=== PATIENT | female | born 1985 | race Caucasian/White ===

== ENCOUNTER 2020-03-07 12:44 | Emergency (ER) | payer OTHER, SELFPAY ==
[2020-03-07 13:02] VITALS: BP 132/60; PULSE 117; RESP 16; TEMP 37.1; O2SAT 100
--- NOTE | 2020-03-07 13:33 | ED.GENADULT ---
HPI - General Adult General Chief complaint: Anxiety Stated complaint: needs meds Time Seen by Provider: 03/07/20 13:30 Source: patient and RN notes reviewed Mode of arrival: ambulatory Limitations: no limitations History of Present Illness HPI narrative: 34-year-old female presents with concern for medication refill. Reports she has recently moved to the area and has not established care with a primary care provider. Reports she takes antidepressants and for anxiety which she has been out of for 4 days. Reports she feels like she is withdrawing from his medicines. She denies suicidal ideations. MD complaint: Medication refill Related Data Home Medications Medication Instructions Recorded Confirmed citalopram 40 mg PO DAILY 03/07/20 03/07/20 mirtazapine 45 mg PO HS 03/07/20 03/07/20 Allergies Allergy/AdvReac Type Severity Reaction Status Date / Time No Known Allergies Allergy Mild Unverified 01/30/15 19:33 Review of Systems Review of Systems: Narrative: CONSTITUTIONAL: Denies malaise, chills, sweats, or fever. ENT: Denies rhinorrhea CARDIOVASCULAR: Denies chest pain, palpitations RESPIRATORY: Denies dyspnea. GASTROINTESTINAL: Denies abdominal pain, nausea, vomiting, diarrhea SKIN: Denies rash or itching. NEUROLOGIC: Denies numbness, weakness, or headache. PSYCHIATRIC: Reports anxiety and depression. All systems reviewed & are unremarkable except as noted in HPI and below PMFSH Comments At time of signature, agree with nursing past medical, surgical, social and family history. There is no relevant family history pertinent to the presenting complaint Exam Narrative: Exam Narrative: GENERAL: Well-appearing, well-nourished, and in no acute distress. HEAD: Normocephalic, atraumatic. EYES: PERRLA, conjunctivae clear, and EOMI. No nystagmus. ENT: Nares clear, turbinates pink, no rhinorrhea or epistaxis. Mucous membranes moist. TM pearly saenz with sharp light reflex bilaterally; no tragal tenderness. Oropharynx without erythema or lesions. Tonsils not enlarged and without exudate. NECK: Supple. No lymphadenopathy. No jugular venous distension, thyromegaly, or carotid bruits. Carotids were easily palpable bilaterally. CHEST: No respiratory distress. Clear to auscultation. No bony deformities, no asymmetry. Speaks in full sentences. HEART: Regular rate and rhythm. No murmur heard. Normal peripheral pulses. ABDOMEN: Soft, nontender, nondistended, normal active bowel sounds, no palpable masses. EXTREMITIES: Normal range of motion. No edema. Normal strength and sensation. SKIN: Warm, dry, no rash. NEURO: Alert and oriented x3. No focal deficits. Cranial nerves II through XII grossly intact PSYCH: Normal mood and affect Course Course Emergency Course: Discussed importance of finding primary care provider, provided patient information a primary care provider to contact for appointment to provide future refills. Patient is aware of diagnosis, understands and agrees to treatment plan. Anticipatory guidance given. Patient agrees to follow-up as directed and is aware of reasons to seek care at the emergency department. Portions of this record may have been created with voice recognition software Vital Signs Vital signs: Vital Signs Temperature 98.7 F 03/07/20 13:02 Pulse Rate 117 H 03/07/20 13:02 Respiratory Rate 16 03/07/20 13:02 Blood Pressure 132/60 03/07/20 13:02 Pulse Oximetry 100 03/07/20 13:02 Temperature 98.7 F 03/07/20 13:02 Pulse Rate 117 H 03/07/20 13:02 Respiratory Rate 16 03/07/20 13:02 Blood Pressure 132/60 03/07/20 13:02 Pulse Oximetry 100 03/07/20 13:02 Reviewed. Patient has been instructed to follow up with her primary care provider within the next week regarding her elevated blood pressure today. Medical Decision Making MDM Narrative Medical decision making narrative: Exam findings show no acute concerns or changes; patient is non-toxic appearing and is in no distress. [place]
== END 2020-03-07 13:45 | disposition home or self-care (01) ==
PROVIDERS: Emergency Provider Nurse Practitioner
DX: F41.9 Anxiety disorder, unspecified (principal)
CPT/HCPCS: 99201; G0463

== ENCOUNTER 2021-05-04 11:36 | Emergency (ER) | payer OTHER, SELFPAY ==
[2021-05-04 11:44] VITALS: BP 133/87; PULSE 92; RESP 18; TEMP 36.5; O2SAT 100
--- NOTE | 2021-05-04 12:10 | ED.DENTAL ---
HPI - Dental/Oral General Chief complaint: Dental/Oral Stated complaint: TOOTHACHE Time Seen by Provider: 05/04/21 12:02 Source: patient and RN notes reviewed Mode of arrival: ambulatory Limitations: no limitations History of Present Illness HPI Narrative: Patient presents today with a broken tooth x5 months in the left lower posterior, and tooth pain in the affected tooth x2 days. States she feels like her nervemaybeexposed there may be a shard in this area that feels like it is cutting her tongue when she runs her tongue over the tooth. Denies fever, facial swelling, shortness of breath. Patient does not currently have a dentist but is seeking one. She currently rates her pain 4/10 and has been using Aleve and Orajel without relief. No recent antibiotic use. MD Complaint: tooth pain Related Data Allergies Allergy/AdvReac Type Severity Reaction Status Date / Time No Known Allergies Allergy Mild Unverified 01/30/15 19:33 Review of Systems Review of Systems: Narrative: CONSTITUTIONAL: Denies body aches, fever, chills, or sweats. EYES: Denies visual changes, redness, or discharge. ENT: Denies rhinorrhea, congestion, sore throat, or otalgia.+ Tooth pain CARDIOVASCULAR: Denies chest pain, palpitations, or edema. RESPIRATORY: Denies cough or dyspnea. GASTROINTESTINAL: Denies abdominal pain, nausea, vomiting, or diarrhea. GENITOURINARY: Denies dysuria or hematuria. SKIN: Denies rash, itching, or wounds. MUSCULOSKELETAL: Denies back pain, joint pain, or myalgia. NEUROLOGIC: Denies headache, numbness, tingling, or weakness. PSYCH: Denies depression or anxiety. PMFSH Comments At time of signature, I have reviewed and agree with nursing past medical, surgical, social and family history unless otherwise noted. Please see nursing chart for further information. There is no relevant family history pertinent to the presenting complaint Exam Narrative: Exam Narrative: GENERAL: Well-appearing, well-nourished, and in no acute distress. HEAD: Normocephalic, atraumatic. EYES: EOMI. No redness or drainage. Conjunctivae normal. ENT: Mucous membranes pink and moist. Throat normal. Uvula midline.+ Tooth #18 is broken off at the gumline and is tender to palpation. NECK: Normal AROM. Supple. No lymphadenopathy. CHEST: No respiratory distress. Clear to auscultation. HEART: Regular rate and rhythm. No murmur appreciated. Normal peripheral pulses. EXTREMITIES: Normal range of motion. No edema. SKIN: Warm, dry, no rash. Capillary refill normal. Normal skin turgor. NEURO: No focal deficits. Alert and oriented x3. Gait steady. PSYCH: Normal affect. No signs of depression or anxiety. Course Vital Signs Vital signs: Vital Signs Temperature 97.7 F 05/04/21 11:44 Pulse Rate 92 05/04/21 11:44 Respiratory Rate 18 05/04/21 11:44 Blood Pressure 133/87 05/04/21 11:44 Pulse Oximetry 100 05/04/21 11:44 Temperature 97.7 F 05/04/21 11:44 Pulse Rate 92 05/04/21 11:44 Respiratory Rate 18 05/04/21 11:44 Blood Pressure 133/87 05/04/21 11:44 Pulse Oximetry 100 05/04/21 11:44 Reviewed. Pt has been instructed to follow up with her PCP regarding her elevated blood pressure today. MDM - Dental/Oral Differential Diagnosis Differential diagnosis: Likely gingival abscess, dental caries, toothache, dental abscess and fracture of tooth Critical Care Time Critical Care Time Critical Care Time: No Discharge Plan Discharge Clinical Impression: Fracture of tooth Qualifiers: Encounter type: initial encounter Fracture type: closed Qualified Code(s): S02.5XXA - Fracture of tooth (traumatic), initial encounter for closed fracture Patient Disposition: Home, Self-Care Condition: Stable Instructions: Antibiotic Form, Dental Abscess (ED) Additional Instructions: Please take the amoxicillin as prescribed until gone. Continue Aleve for pain. Follow-up with a dentist as soon as possible for further evaluation and treat
== END 2021-05-04 12:22 | disposition home or self-care (01) ==
PROVIDERS: Emergency Provider Nurse Practitioner
DX: S02.5XXA Fracture of tooth (traumatic), initial encounter for closed fracture (principal); X58.XXXA Exposure to other specified factors, initial encounter
CPT/HCPCS: 99213; G0463

== ENCOUNTER 2021-05-17 19:18 | Emergency (ER) | payer OTHER, SELFPAY ==
--- NOTE | 2021-05-17 20:03 | PC.NURSE ---
Pt reports she will return in the morning. Left emergency room, ambulatory. Pt educated to ED if symptoms worsen or return
== END 2021-05-18 05:03 | disposition left against medical advice (07) ==
DX: Z53.21 Procedure and treatment not carried out due to patient leaving prior to being seen by health care provider (principal)
CPT/HCPCS: 99199

== ENCOUNTER 2021-05-18 10:15 | Emergency (ER) | payer OTHER, SELFPAY ==
--- NOTE | ~2021-05-18 | XR_ITS ---
EXAMINATION: XR chest 2V 05/18/2021 11:15 INDICATION: Left-sided chest pain. Chest tightness. PROCEDURE: 2 view chest COMPARISON: No prior studies for comparison. FINDINGS: The lungs are clear. The cardiomediastinal silhouette is within normal limits. There are no pleural effusions. There is no pneumothorax suspected. IMPRESSION: 1: NO ACUTE CARDIOPULMONARY DISEASE. Reviewed, dictated and finalized at location A.
[2021-05-18 10:54] VITALS: BP 131/77; PULSE 87; RESP 16; TEMP 36.6; O2SAT 99
--- NOTE | 2021-05-18 10:55 | ECG_ITS ---
Measurements Intervals [place] Rate: 68 P: 63 NM: 111 QRS: 73 QRSD: 65 T: 44 QT: 377 QTc: 402 Interpretive Statements SINUS RHYTHM WITH SHORT NM INTERVAL BORDERLINE ECG Electronically Signed On 05-18-2021 11:39:57 CDT by Andrew Pal D.O.
[2021-05-18 11:22] LABS: Basophils Absolute Auto 0.1 K/mm3 (0.0-0.1); Basophils Percent Auto 0.6 % (0.2-1.2); Eosinophils Absolute Auto 0.3 K/mm3 (0-0.3); Eosinophils Percent Auto 3.8 % (0-4.4); Hematocrit 44.4 % (37.0-47.0); Hemoglobin 14.6 g/dL (12.0-15.0); Immature Granulocyte Absolute 0.02 K/mm3 (0.00-0.031); Immature Granulocyte Percent A 0.2 % (0-0.5); Lymphocytes Absolute Auto 3.18 K/mm3 (0.9-3.2); Lymphocytes Percent Auto 36.9 % (18.3-44.2); Mean Corpuscular HGB Conc 32.9 g/dl (32-36); Mean Corpuscular Hemoglobin 32.7 pg (26-34); Mean Corpuscular Volume 99.6 fl (80-100); Mean Platelet Volume 10.2 fl (7.4-10.4); Monocytes Absolute Auto 0.6 K/mm3 (0.1-0.6); Monocytes Percent Auto 6.5 % (2.6-8.5); Neutrophils Absolute Auto 4.5 K/mm3 (1.3-6.7); Platelet Count Result 345 k/mm3 (150-375); Red Blood Count 4.46 M/mm3 (4.2-5.4); Red Cell Distribution Width 13.6 % (11.5-14.5); White Blood Count 8.6 K/mm3 (4.5-10.0)
[2021-05-18 11:31] VITALS: BP 120/85; PULSE 67; RESP 16; O2SAT 100
[2021-05-18 11:31] LABS: Add Urine Microscopic? NO; Alanine Aminotransferase 22 U/L (4-35); Albumin Level 4.1 g/dL (3.5-5.1); Alkaline Phosphatase 52 U/L (38-126); Anion Gap 7 mmol/L (8-16); Appearance Urine Clear (Clear); Aspartate Amino Transferase 23 U/L (14-36); Bilirubin Urine Negative (Negative); Bilirubin,Total 0.3 mg/dL (0.2-1.3); Blood Urea Nitrogen 10 mg/dL (7-17); Blood Urine Negative (Negative); Calcium 9.3 mg/dL (8.4-10.2); Carbon Dioxide 24 mmol/L (22-30); Chloride 107 mmol/L (98-107); Color Urine Yellow (Yellow); Estimated Glomerular Filt Rate > 60; Glucose 85 mg/dL (65-110); Glucose Urine UA Negative (Negative); Ketones Urine Negative (Negative); Leukocyte Esterase Ur Negative LEU/UL (Negative); Nitrate Urine Negative (Negative); Potassium 4.5 mmol/L (3.4-5.0); Protein Urine Negative (Negative); Sodium 138 mmol/L (137-145); Specific Grav Ur 1.019 (1.001-1.035); Urobilinogen Urine Negative mg/dL (<2.0)
[2021-05-18] MEDS: METOCLOPRAMIDE HCL INJ 10 MG/2 ML VIAL IV PUSH (11:45)
[2021-05-18] MEDS: SODIUM CHLORIDE 0.9% IV 1,000 ML 999 ML IV CONT (11:45)
[2021-05-18] MEDS: diphenhydrAMINE HCl INJ 50 MG/ML VIAL 25 MG IV PUSH (11:45)
[2021-05-18 11:54] LABS: INR 0.9
[2021-05-18 12:02] LABS: Lipase 46 U/L (23-300)
[2021-05-18 12:14] LABS: D Dimer 0.27 ug/mL (<0.48); Troponin I < 0.012 ng/mL (0.000-0.034)
--- NOTE | 2021-05-18 12:45 | ED.WEAKNESS ---
HPI - Weakness General Chief complaint: Weakness Stated complaint: headache, N/V, weakness Time Seen by Provider: 05/18/21 11:17 Source: patient and RN notes reviewed Mode of arrival: ambulatory Limitations: no limitations History of Present Illness HPI Narrative: This is a 36 year old female smoker who presents for evaluation of not feeling well for 3 days. She reports right side headache that is constant with nausea. She also reports hoarseness, cough, intermittent chest tightness. She thinks she has had subjective fever and chills. She reports intermittent shortness of breath. Denies urinary symptoms. She also reports history of migraine headaches. Pain 12/29. Related Data Allergies Allergy/AdvReac Type Severity Reaction Status Date / Time No Known Allergies Allergy Mild Verified 05/18/21 11:20 Review of Systems Review of Systems: All systems reviewed & are unremarkable except as noted in HPI and below Constitutional: Constitutional: Reports chills and Reports fatigue Cardiovascular: Cardiovascular: Reports chest pain and Denies radiating jaw, neck or arm pain Respiratory: Respiratory: Reports cough and Denies dyspnea Gastrointestinal: Gastrointestinal: Reports abdominal pain, Reports nausea and Denies vomiting Neurologic: Reports headache(s) [facility] Past Medical History Medical History (Updated 05/18/21 @ 12:57 by Beverly Robins MD) Patient denies medical problems Surgical History Surgical History (Updated 05/18/21 @ 12:51 by Beverly Robins MD) S/P partial hysterectomy Social History Social History (Updated 05/18/21 @ 12:51 by Beverly Robins MD) Smoking packs per day: 0.5 Smoking cigarettes per day: 10.0 Smoking status: Current every day smoker Exam Const: General: no acute distress and alert Orientation/consciousness: patient oriented x3 Eyes: EOM: EOMs intact bilaterally Chest: Chest palpation & inspection: normal inspection of the chest Resp: Effort & Inspection: normal respiratory effort and no retractions Auscultation: clear to auscultation bilaterally Cardio: Rate: regular rate Rhythm: regular rhythm Heart sounds: no murmurs GI: GI Palp: Yes Soft to palpation, Yes Tenderness to palpation present (GI) (epigastric, RUQ) and No Guarding due to palpation present (GI) Auscultation: normal bowel sounds Skin: General skin exam: normal color Rashes: no rashes Neuro: General: patient oriented x3, moves all extremities and CN's II-XI intact bilaterally Extrem: General: normal to inspection Psych: Mental Status: mental status grossly normal Affect: normal affect Course Reevaluation(s) Reevaluation #1: PAtient states she feels better. Her headache has resolved . She denies abdominal pain. She declines ultrasound. I discussed labs are unremarkable. She may be suffering for viral infection. She will be swabbed for covid Date: 05/18/21 Time: 12:52 Vital Signs Vital signs: Vital Signs Temperature 98 F 05/18/21 10:54 Pulse Rate 87 05/18/21 10:54 Respiratory Rate 16 05/18/21 10:54 Blood Pressure 131/77 05/18/21 10:54 Pulse Oximetry 99 05/18/21 10:54 Temperature 98 F 05/18/21 10:54 Pulse Rate 65 05/18/21 12:46 Respiratory Rate 17 05/18/21 12:46 Blood Pressure 102/62 05/18/21 12:46 Pulse Oximetry 100 05/18/21 12:46 MDM - Weakness Lab Data Attestation: I reviewed the patient's lab results. Result diagrams: 05/18/21 11:07 05/18/21 11:07 Labs: Lab Results 05/18/21 05/18/21 05/18/21 Range/Units 11:07 11:07 11:07 WBC 8.6 (4.5-10.0) K/mm3 RBC 4.46 (4.2-5.4) M/mm3 Hgb 14.6 (12.0-15.0) g/dL Hct 44.4 (37.0-47.0) % MCV 99.6 (80-100) fl MCH 32.7 (26-34) pg MCHC 32.9 (32-36) g/dl RDW 13.6 (11.5-14.5) % Plt Count 345 (150-375) k/mm3 MPV 10.2 (7.4-10.4) fl Immature Gran % (Auto) 0.2 (0-0.5) % Neut % (Auto) 52.0 (45.5-73.1) % Lymph % (A
[2021-05-18 12:46] VITALS: BP 102/62; PULSE 65; RESP 17; O2SAT 100
[2021-05-18 18:40] LABS: SARS-CoV-2 RNA PCR Negative
== END 2021-05-18 13:08 | disposition home or self-care (01) ==
PROVIDERS: Emergency Provider General Practice
DX: Z20.822 Contact with and (suspected) exposure to COVID-19 (principal); R51.9 Headache, unspecified; F17.210 Nicotine dependence, cigarettes, uncomplicated
CPT/HCPCS: 36415; 71046; 80053; 81003; 83690; 84484; 85025; 85380; 85610; 85730; 93005; 96361; 96374; 96375; 99284; C9803; J1200; J2765; J7030; U0003; U0005

== ENCOUNTER 2021-11-19 18:52 | Emergency (ER) | payer OTHER, SELFPAY ==
[2021-11-19 18:55] VITALS: BP 118/91; PULSE 93; RESP 14; TEMP 36.5; O2SAT 99
--- NOTE | 2021-11-19 19:46 | ED.NAVMDI ---
HPI - Nausea/Vomiting/Diarrhea General Chief complaint: Nausea/Vomiting/Diarrhea Stated complaint: n/v Time Seen by Provider: 11/19/21 19:33 Source: patient Mode of arrival: ambulatory Limitations: no limitations History of Present Illness HPI Narrative: This is a 36 year old female that presents to the ER for nausea and vomiting ongoing over the last week. Also reports diarrhea, fever and sore throat. Reports she has had several co-workers test positive for COVID. Denies abdominal pain. Related Data Allergies Allergy/AdvReac Type Severity Reaction Status Date / Time No Known Allergies Allergy Mild Verified 05/18/21 11:20 Review of Systems Review of Systems: CONSTITUTIONAL: Denies fever GASTROINTESTINAL: Reports nausea, vomiting and diarrhea. Denies abdominal pain GENITOURINARY: Denies dysuria All systems reviewed & are unremarkable except as noted in HPI and below PMFSH Surgical History Surgical History (Updated 05/18/21 @ 12:51 by Beverly Robins MD) S/P partial hysterectomy Social History Social History (Updated 05/18/21 @ 12:51 by Beverly Robins MD) Smoking packs per day: 0.5 Smoking cigarettes per day: 10.0 Smoking status: Current every day smoker Exam Narrative: GENERAL: Well-appearing, well-nourished, and in no acute distress. HEAD: Normocephalic, atraumatic. EYES: EOMI. ENT: Nares clear, no rhinorrhea or epistaxis. Mucous membranes moist. Oropharynx without tonsillar hypertrophy exudate or other lesions. CHEST: Clear to auscultation. No respiratory distress. No wheezes rales or rhonchi HEART: Regular rate and rhythm. No murmur heard. Normal peripheral pulses. ABDOMEN: Soft, nontender, nondistended, normal active bowel sounds. EXTREMITIES: Normal range of motion. No edema. SKIN: Warm, dry, no rash. NEURO: No focal deficits. Alert and oriented x3. PSYCH: Normal mood and affect Course Vital Signs Vital signs: Vital Signs Temperature 97.7 F 11/19/21 18:55 Pulse Rate 93 11/19/21 18:55 Respiratory Rate 14 11/19/21 18:55 Blood Pressure 118/91 H 11/19/21 18:55 Pulse Oximetry 99 11/19/21 18:55 Temperature 97.7 F 11/19/21 18:55 Pulse Rate 80 11/19/21 20:46 Respiratory Rate 20 11/19/21 20:46 Blood Pressure 132/78 11/19/21 20:46 Pulse Oximetry 99 11/19/21 20:46 MDM - Nausea/Vomiting/Diarrhea MDM Narrative Medical decision making narrative: Patient presents to the ER for nausea, vomiting and diarrhea. Reports exposure to COVID. She is afebrile and nontoxic-appearing. Her vitals are stable. Abdominal exam is benign. CBC with mild leukocytosis to 11.1. Metabolic panel and lipase without concerning findings. UA without evidence of infection. Bedside test is negative. Influenza screen is negative. SARS-CoV-2 was sent. 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 She was instructed to have follow up with primary care and gastroenterology. She was given warnings to return to the ER Lab Data Attestation: I reviewed the patient's lab results. Result diagrams: 11/19/21 19:42 11/19/21 19:42 Labs: Lab Results 11/19/21 11/19/21 11/19/21 Range/Units 19:42 19:42 19:42 WBC 11.1 H (4.5-10.0) K/mm3 RBC 4.26 (4.2-5.4) M/mm3 Hgb 14.1 (12.0-15.0) g/dL Hct 41.7 (37.0-47.0) % MCV 97.9 (80-100) fl MCH 33.1 (26-34) pg MCHC 33.8 (32-36) g/dl RDW 12.4 (11.5-14.5) % Plt Count 363 (150-375) k/mm3 MPV 9.5 (7.4-10.4) fl Immature Gran % (Auto) 0.3 (0-0.5) % Neut % (Auto) 45.6 (45.5-73.1) % Lymph % (Auto) 44.5 H (18.3-44.2) % [place] % (Auto) 6.9 (2.6-8.5) % Eos % (Auto) 2.2 (0-4.4) % Baso % (Auto) 0.5 (0.2-1.2) % Lymph # (Auto) 4.96 H (0.9-3.2) K/mm3 [place] # (Auto) 0.8 H (0.1-0.6) K/mm3 Eos # (Auto) 0.3 (0-0.3) K/mm3 Baso # (Auto) 0.1 (0.0-0.1) K/mm3 Abs Immat Gran (auto)
[2021-11-19 19:48] LABS: Basophils Absolute Auto 0.1 K/mm3 (0.0-0.1); Basophils Percent Auto 0.5 % (0.2-1.2); Eosinophils Absolute Auto 0.3 K/mm3 (0-0.3); Eosinophils Percent Auto 2.2 % (0-4.4); Hematocrit 41.7 % (37.0-47.0); Hemoglobin 14.1 g/dL (12.0-15.0); Immature Granulocyte Absolute 0.03 K/mm3 (0.00-0.031); Immature Granulocyte Percent A 0.3 % (0-0.5); Lymphocytes Absolute Auto 4.96 K/mm3 (0.9-3.2); Lymphocytes Percent Auto 44.5 % (18.3-44.2); Mean Corpuscular HGB Conc 33.8 g/dl (32-36); Mean Corpuscular Hemoglobin 33.1 pg (26-34); Mean Corpuscular Volume 97.9 fl (80-100); Mean Platelet Volume 9.5 fl (7.4-10.4); Monocytes Absolute Auto 0.8 K/mm3 (0.1-0.6); Monocytes Percent Auto 6.9 % (2.6-8.5); Neutrophils Absolute Auto 5.1 K/mm3 (1.3-6.7); Neutrophils Percent Auto 45.6 % (45.5-73.1); Platelet Count Result 363 k/mm3 (150-375); Red Blood Count 4.26 M/mm3 (4.2-5.4); Red Cell Distribution Width 12.4 % (11.5-14.5); White Blood Count 11.1 K/mm3 (4.5-10.0)
[2021-11-19 19:52] LABS: Add Urine Microscopic? YES; Appearance Urine Clear (Clear); Bilirubin Urine Negative (Negative); Blood Urine Negative (Negative); Color Urine Yellow (Yellow); Glucose Urine UA Negative (Negative); Ketones Urine Trace mg/dL (Negative); Leukocyte Esterase Ur Negative LEU/UL (Negative); Mucus Urine Few /lpf; Nitrate Urine Negative (Negative); Protein Urine Negative (Negative); RBC Urine 0-2 /hpf (0-2); Specific Grav Ur 1.024 (1.001-1.035); Squamous Epithelial Cell Urine Few /hpf (Few); Urobilinogen Urine Negative mg/dL (<2.0); WBC Urine 0-3 /hpf
[2021-11-19 20:01] LABS: Alanine Aminotransferase 27 U/L (4-35); Albumin Level 4.5 g/dL (3.5-5.1); Alkaline Phosphatase 60 U/L (38-126); Anion Gap 5 mmol/L (8-16); Aspartate Amino Transferase 25 U/L (14-36); Bilirubin,Total 0.4 mg/dL (0.2-1.3); Blood Urea Nitrogen 11 mg/dL (7-17); Calcium 8.8 mg/dL (8.4-10.2); Carbon Dioxide 29 mmol/L (22-30); Chloride 102 mmol/L (98-107); Estimated Glomerular Filt Rate > 60; Glucose 83 mg/dL (65-110); Lipase 31 U/L (23-300); Potassium 3.8 mmol/L (3.4-5.0); Sodium 136 mmol/L (137-145)
[2021-11-19 20:46] VITALS: BP 132/78; PULSE 80; RESP 20; O2SAT 99
[2021-11-19 20:53] LABS: SARS-CoV-2 RNA PCR Negative
== END 2021-11-19 20:48 | disposition home or self-care (01) ==
PROVIDERS: Physician Assistant; Emergency Provider Emergency Medicine
DX: R11.2 Nausea with vomiting, unspecified (principal); Z20.822 Contact with and (suspected) exposure to COVID-19; F17.210 Nicotine dependence, cigarettes, uncomplicated
CPT/HCPCS: 36415; 80053; 81001; 81025; 83690; 85025; 87804; 99283; C9803; U0003; U0005

== ENCOUNTER 2022-02-27 16:43 | Emergency (ER) | payer OTHER, SELFPAY ==
--- NOTE | 2022-02-27 16:55 | PC.NURSE ---
Pt states its too busy in the waiting room, she states she will come back later when it is not so busy. Pt ambulated out in no obvious distress, steady gait. Pt not triaged.
== END 2022-02-27 17:26 | disposition left against medical advice (07) ==
DX: Z53.21 Procedure and treatment not carried out due to patient leaving prior to being seen by health care provider (principal)
CPT/HCPCS: 99199